=== PATIENT | female | born 1975 | race Two or more races ===

== ENCOUNTER 2025-01-17 07:40 | Day surgery (SDC) | payer OTHER ==
[2025-01-14 12:23] VITALS: BP 118/78
[2025-01-14 12:33] LABS: BASO % 0.4 % (0.1-1.2); EOS # 0.06 (0.04-0.54); EOS % 0.8 % (0.7-7.0); LYMPH # 1.96 (1.18-3.74); LYMPH % 27.3 % (19.3-53.1); MEAN PLATELET VOLUME 10.70 fl (9.4-12.4); MONO # 0.59 (0.24-0.82); MONO % 8.2 % (4.7-12.5); NEUT # 4.51 (1.56-6.13); NEUT % 63.0 % (34.0-71.1); RED CELL DISTRIBUTION WIDTH 13.2 % (11.6-14.4)
[2025-01-14 13:02] LABS: INR 0.94
[~2025-01-17] VITALS: Ht 160 cm; Wt 68.0 kg
[~2025-01-17 07:40] MED LIST: AMLODIPINE BESYL5 MG PO; COZAAR100 MG PO
[2025-01-17] MEDS ORDERED: CEFAZOLIN SODIUM 1,000 MG VIAL IV ONE (09:45)
[2025-01-17] MEDS ORDERED: POVIDONE-IODINE 118 ML BOTT TOP ONE (09:45)
[2025-01-17] MEDS ORDERED: MONDOXYNE NL100 MG PO (14:14)
[2025-01-17] MEDS ORDERED: NAPR500T14 PO (14:14)
[2025-01-17] MEDS ORDERED: PROMETHAZINE HCL 50 MG/ML AMPUL IM ONE (14:15)
[2025-01-17] MEDS ORDERED: MORPHINE SULFATE 4 MG/ML VIAL IV PRN (14:15)
== END 2025-01-17 16:20 | disposition home or self-care (01) ==
LOC: CIR.AMB 07:40
PROVIDERS: ATTEND Obstetrics & Gynecology
DX: C53.1 Malignant neoplasm of exocervix (principal)